=== PATIENT | female | born 1985 | race Caucasian/White ===

== ENCOUNTER 2019-08-28 18:41 | Emergency (ER) | payer BC, OTHER, SELFPAY ==
--- NOTE | ~2019-08-28 | CT_ITS ---
EXAMINATION: CT abdomen pelvis w con EXAM DATE: 08/28/2019 22:27 INDICATION: Low abdominal pain, postoperative for section. TECHNIQUE: Spiral CT of the abdomen and pelvis was performed following intravenous injection of 100 m L Omnipaque 350. Axial, coronal and sagittal images were reviewed. The dose-length product (DLP) fo r this examination was 1664.59 mGy-cm. The exposure was tailored according to patient size (auto mA exposure control), and iterative reconstruction (ASIR) was used as additional dose reduction techniqu e. There is no prior study for comparison. FINDINGS: Small amount of subcutaneous fat stranding presumably along the section site. No a bscess. The liver, spleen, adrenal glands and pancreas are unremarkable. Gallbladder not identified , patient likely has had cholecystectomy. Portal and splenic veins are patent. Kidneys enhance symm etrically. There is no hydronephrosis. The uterus and ovaries are unremarkable, no adnexal mass. The bladder is unremarkable. There is no retroperitoneal or pelvic lymphadenopathy. The appendix is normal. There are surgical changes consistent with gastric sleeve procedure. There i s mild scattered colonic diverticulosis. There is no adjacent inflammatory change to suggest diverti culitis. No free intraperitoneal gas. The heart is normal in size. There are no pericardial or pl eural effusions. The lung bases are unremarkable. There are no osteoblastic or osteolytic lesions i dentified. IMPRESSION: 1. Small amount of subcutaneous fat stranding presumably along the section site. No abscess . Reviewed, dictated and finalized at location A. 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 Small amount of subcutaneous fat stranding presumably along the se ction site. No abscess.
[2019-08-28 18:46] VITALS: BP 155/90; PULSE 90; RESP 15; TEMP 36.4; O2SAT 100
[2019-08-28 19:19] VITALS: BP 149/96; PULSE 91; RESP 12; O2SAT 96
--- NOTE | 2019-08-28 19:27 | ED.PREGNANCY ---
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 Pt reports she started experiencing sharp lt sided ABD pain radiating down labia 4 days ago. Pt states she is currently 6 days post-op from a , and notes her pain is directly blow the incision. Pt states the surgery was performed by Dr. Morgan Castillo at [facility], but notes this physician does not do follow up checks on C-Sections. Pt states the pain is alleviated when applying pressure and aggravated by standing up straight. Pt states she took a narcotic prescribed during the and Ibuprofen to no relief on the pain. Pt denies difficulty urinating. Onset (ago): day(s) (4) Location: abdomen (Lt sided) Radiation: other (Down labia) Associated symptoms: denies other symptoms Related Data Home Medications Medication Instructions Recorded Confirmed venlafaxine [Effexor XR] 75 mg PO DAILY 08/28/19 Allergies Allergy/AdvReac Type Severity Reaction Status Date / Time bandaids Allergy Rash Uncoded 08/28/19 18:50 Review of Systems Review of Systems: All systems reviewed & are unremarkable except as noted in HPI and below Gastrointestinal: Gastrointestinal: Reports abdominal pain (Lt sided radiating down labia) Genitourinary: Genitourinary: Denies urinary frequency PMFSH Past Medical History Medical History No significant past medical history Surgical History Surgical History History of Social History Social History Smoking status: Unknown if ever smoked Gender identity (if verbalized by the patient): Female Exam Const: General: healthy appearing, no acute distress and well developed Nutritional Appearance: obese morbidly obese Orientation/consciousness: patient oriented x3 (alert) and Other orientation findings (Alert) Limitations: no limitations HENMT: Head: normocephalic and atraumatic Ears: external ears normal General nose exam: No nasal discharge present and no epistaxis Face and sinus: face symmetric Mouth: Yes lip normal Eyes: Conjunctivae: conjunctivae normal Sclera: sclerae normal EOM: EOMs intact bilaterally Neck: Neck: full ROM and supple Thyroid: thyroid normal Resp: Effort & Inspection: normal respiratory effort Auscultation: clear to auscultation bilaterally, no rales, no rhonchi, no wheezes and other (breath sounds equal) Cardio: Rate: regular rate Rhythm: regular rhythm Heart sounds: no gallops and no murmurs GI: Inspection: non-distended, incision (Well-healing wound - no obvious erythema or fluid collections) and no visible herniation GI Palp: No abdominal tenderness and Yes Soft to palpation Auscultation: other (bowel sounds present) Back/Spine/Pelvis: Thoracic/Lumbar Spine: thoracic and lumbar spine normal to inspection Skin: General skin exam: normal color and no rashes or lesions noted Neuro: General: patient oriented x3 (alert), moves all extremities and no focal motor deficits Cranial nerves: Yes facial symmetry Speech: normal speech Motor exam (neuro): Motor abnormalities not present Extrem: General: normal to inspection, full ROM and no pedal edema Psych: Affect: normal affect Course Course Emergency Course: unremarkable ed evaluation did d/w dr sweeney who felt that beyond six weeks she was likely out of the range to worry re obstetrical complications Vital Signs Vital signs: Vital Signs Temperature 36.4 C L 08/28/19 18:46 Pulse Rate 90 08/28/19 18:46 Respiratory Rate 15 08/28/19 18:46 Blood Pressure 155/90 H 08/28/19 18:46 Pulse Oximetry 10
[2019-08-28 19:43] LABS: Add Urine Microscopic? NO; Appearance Urine Clear (Clear); Bilirubin Urine Negative (Negative); Blood Urine Negative (Negative); Color Urine Yellow (Yellow); Glucose Urine UA Negative (Negative); Ketones Urine Negative (Negative); Leukocyte Esterase Ur Negative LEU/UL (Negative); Nitrate Urine Negative (Negative); Protein Urine Negative (Negative); Specific Grav Ur 1.017 (1.001-1.035); Urobilinogen Urine Negative mg/dL (<2.0)
[2019-08-28 19:47] LABS: Basophils Absolute Auto 0.1 K/mm3 (0.0-0.1); Basophils Percent Auto 0.6 % (0.2-1.2); Eosinophils Absolute Auto 0.4 K/mm3 (0-0.3); Eosinophils Percent Auto 4.2 % (0-4.4); Hematocrit 35.4 % (37.0-47.0); Hemoglobin 10.7 g/dL (12.0-15.0); Immature Granulocyte Absolute 0.03 K/mm3 (0.00-0.031); Immature Granulocyte Percent A 0.3 % (0-0.5); Lymphocytes Absolute Auto 2.95 K/mm3 (0.9-3.2); Lymphocytes Percent Auto 33.2 % (18.3-44.2); Mean Corpuscular HGB Conc 30.2 g/dl (32-36); Mean Corpuscular Hemoglobin 24.4 pg (26-34); Mean Corpuscular Volume 80.8 fl (80-100); Mean Platelet Volume 9.1 fl (7.4-10.4); Monocytes Absolute Auto 0.6 K/mm3 (0.1-0.6); Monocytes Percent Auto 6.2 % (2.6-8.5); Neutrophils Absolute Auto 4.9 K/mm3 (1.3-6.7); Neutrophils Percent Auto 55.5 % (45.5-73.1); Platelet Count Result 454 k/mm3 (150-375); Red Blood Count 4.38 M/mm3 (4.2-5.4); Red Cell Distribution Width 17.7 % (11.5-14.5); White Blood Count 8.9 K/mm3 (4.5-10.0)
[2019-08-28 20:08] LABS: Blood Urea Nitrogen 11 mg/dL (7-17); Calcium 8.8 mg/dL (8.4-10.2); Carbon Dioxide 27 mmol/L (22-30); Chloride 101 mmol/L (98-107); Estimated CRCL calculation 107 ml/min; Estimated Glomerular Filt Rate > 60; Glucose 103 mg/dL (65-105); Potassium 4.3 mmol/L (3.4-5.0); Sodium 139 mmol/L (137-145)
[2019-08-28 20:16] LABS: Beta HCG Quantitative < 2.39 mIU/ML
[2019-08-28 20:30] VITALS: BP 133/96; PULSE 73; RESP 17; O2SAT 98
[2019-08-28 21:40] VITALS: BP 134/86; PULSE 63; RESP 12; O2SAT 99
[2019-08-28 23:30] VITALS: BP 132/87; PULSE 64; RESP 18; TEMP 36.7; O2SAT 98
== END 2019-08-28 23:20 | disposition home or self-care (01) ==
PROVIDERS: Emergency Provider Emergency Medicine; PCP Emergency Medicine
DX: R10.2 Pelvic and perineal pain (principal)
CPT/HCPCS: 36415; 74177; 80048; 81003; 84702; 85025; 87070; 87491; 87591; 87808; 99284; Q9967

== ENCOUNTER 2020-02-01 12:48 | Outpatient (CLI) | payer OTHER, SELFPAY ==
--- NOTE | ~2020-02-01 | US_ITS ---
EXAMINATION: US OB <=14 wk fetus w TV DATE: 02/01/2020 13:37 INDICATION: First trimester dating TECHNIQUE: Real-time pelvic transabdominal and transvaginal ultrasound was performed. COMPARISON: None. FINDINGS: The uterus measures 13.6 x 5.2 x 9.4 cm. There is an intrauterine gestational sac. A yolk sac is identified. heart motion is identified measuring 163 beats per minute (bpm) by M-mode Do ppler. The crown rump length measures 4.9 cm , which correlates with an estimated gestational a ge of 11 weeks and 1 day(s) (+/-) 5 day(s). The right ovary is not visualized however no right adnexal abnormality is seen. The left ovary measur es 4.1 x 2.4 x 2.5 cm and contains a cyst or corpus luteum. There is normal vascular flow in the left ovary. There is no free fluid in the pelvis. IMPRESSION: 1. Live intrauterine with an estimated gestational age of 11 weeks and 1 day(s) (+/-) 5 day (s) and an estimated delivery date of 08/21/2020. Reviewed, dictated and finalized at location A. IMPRESSION: 1. Live intrauterine with an estimated gestational age of 11 weeks an d 1 day(s) (+/-) 5 day(s) and an estimated delivery date of 08/21/2020.
== END 2020-02-01 12:49 | disposition home or self-care (01) ==
PROVIDERS: Visit Provider Obstetrics & Gynecology
DX: N91.2 Amenorrhea, unspecified (principal); Z3A.11 11 weeks gestation of pregnancy
CPT/HCPCS: 76801; 76817

== ENCOUNTER 2020-04-15 10:08 | Outpatient (CLI) | payer OTHER, SELFPAY ==
[2020-04-15 12:11] LABS: Glucose 1 Hour PP 50gm Dose 132 mg/dL
== END 2020-04-15 10:09 | disposition home or self-care (01) ==
LOC: ANHLAB 10:11
PROVIDERS: Visit Provider Obstetrics & Gynecology
DX: Z34.90 Encounter for supervision of normal pregnancy, unspecified, unspecified trimester (principal)
CPT/HCPCS: 36415; 82947

== ENCOUNTER 2020-05-06 10:42 | Observation (INO) | payer OTHER, SELFPAY ==
[2020-05-06] VITALS (15 sets, daily range): BP systolic 113–145; BP diastolic 60–95; PULSE 61–85; O2SAT 94–98; BMI 49.5
--- NOTE | 2020-05-06 11:03 | OBADM ---
This patient, Sonia Carroll, admitted to the OB room OB Post 115 for observation. Patient/family oriented to hospital policies and general routines including ID bracelet, bed and alarms, visiting hours, pain management, procedures, bathroom and other care routines, personal items, smoking policy, room service/diet, and visiting hours. Patient/Family are encouraged to report perceived risks to care and to ask questions if they do not understand what they are told or what they should do.
[2020-05-06] MEDS: ACETAMINOPHEN 325 MG TABLET 650 MG PO (11:35)
--- NOTE | 2020-05-06 11:39 | PC.NURSE ---
1124- Spoke with Dr. Puente, history given. ORders to send UA and give Tylenol 650 PO. will come down to see patient.
[2020-05-06 11:47] LABS: Add Urine Microscopic? NO; Appearance Urine Clear (Clear); Bilirubin Urine Negative (Negative); Blood Urine Negative (Negative); Color Urine Yellow (Yellow); Glucose Urine UA Negative (Negative); Ketones Urine Negative (Negative); Leukocyte Esterase Ur Negative LEU/UL (Negative); Nitrate Urine Negative (Negative); Protein Urine Negative (Negative); Specific Grav Ur 1.013 (1.001-1.035); Urobilinogen Urine Negative mg/dL (<2.0)
--- NOTE | 2020-05-06 13:07 | P.PNOB_ITS ---
OB - PN: Subj Subjective Date/time seen: 05/06/20 13:07 Pt presented for evaluation after noticing a sharp pain on the left side that went upwards when she was walking. No pain prior to this. No constipation. No spotting. The pain is intermittent. She denies dysuria. On L and D no contractions. UA neg. She was given 650mg Tylenol and did not change the intermittent sharp pain. Nurse checked her cervix which was closed. She had an initial elevated blood pressure but the repeats have been normal. No headache, scotomata or RUQ pain. OB - PN: Obj Data Labs Labs: Laboratory Results - last 24 hr 05/06/20 11:30 Urine Color Yellow Urine Appearance Clear Urine pH 7.0 Ur Specific [place] 1.013 Urine Protein Negative Urine Glucose (UA) Negative Urine Ketones Negative Ur Blood (Man) Negative Urine Nitrate Negative Urine Bilirubin Negative Urine Urobilinogen Negative Leukocyte Esterase Rfl Negative OB - PN A/P Assessment and Plan (1) Abdominal pain affecting : Code(s): O26.899 - Other specified related conditions, unspecified trimester; R10.9 - Unspecified abdominal pain Status: Acute Assessment and Plan: No labor or UTI. Discussed with her that the pain appears to be musculoskeletal. Recommend a support belt. May take Tylenol for pain. Call if pain gets worse, or bleeding, labor precautions. Time Spent With Patient Time: Total time spent is greater than 50% in coordination of care (as documented) at patient's floor/unit and/or counseling patient: Review of Systems Review of Systems: All systems reviewed & are unremarkable except as noted in HPI and below Constitutional: Constitutional: Reports no additional constitutional complaints and Denies headache(s) Eyes: Eyes: Denies spots in vision ENT: Reports system reviewed and no additional complaints, except as documented and Denies headache(s) Cardiovascular: Cardiovascular: Denies chest pain Gastrointestinal: Gastrointestinal: Reports no additional gastrointestinal complaints Genitourinary: Genitourinary: Reports amenorrhea Neurologic: Denies headache(s) Exam Const: General: comfortable and no acute distress Eyes: General: appearance normal, both eyes and all related structures Resp: Effort & Inspection: normal respiratory effort GI: Other: Abdomen- gravid, no RUQ pain, mild left upper tenderness, no guarding or rebound. No hepatosplenomegaly. : Other: cervix closed per nurse report Extrem: General: normal to inspection
--- NOTE | 2020-05-06 13:10 | PC.NURSE ---
1250- Dr. Puente at bedside evaluating patient. Orders to discharge to home, rest and tylenol as needed.
== END 2020-05-06 13:00 | disposition home or self-care (01) ==
PROVIDERS: Admitting Provider Obstetrics & Gynecology; PCP Emergency Medicine; Visit Provider Obstetrics & Gynecology
DX: O26.899 Other specified pregnancy related conditions, unspecified trimester (principal); R10.9 Unspecified abdominal pain; Z3A.00 Weeks of gestation of pregnancy not specified
CPT/HCPCS: 81003; A9270; G0378; G0379

== ENCOUNTER 2020-06-19 09:42 | Outpatient (CLI) | payer OTHER, SELFPAY ==
[2020-06-19 10:02] LABS: Hematocrit 29.4 % (37.0-47.0); Hemoglobin 9.3 g/dL (12.0-15.0); Mean Corpuscular HGB Conc 31.6 g/dl (32-36); Mean Corpuscular Hemoglobin 24.3 pg (26-34); Mean Corpuscular Volume 76.8 fl (80-100); Mean Platelet Volume 9.5 fl (7.4-10.4); Platelet Count Result 404 k/mm3 (150-375); Red Blood Count 3.83 M/mm3 (4.2-5.4); Red Cell Distribution Width 14.3 % (11.5-14.5); White Blood Count 8.4 K/mm3 (4.5-10.0)
[2020-06-19 10:21] LABS: Glucose Fasting Gestational 90 mg/dL (>/=95)
[2020-06-19 11:17] LABS: Vitamin D 25 Hydroxy 14.8 ng/mL
[2020-06-19 12:14] LABS: Glucose 2 Hour Gest 222 mg/dL (>/= 155)
[2020-06-19 13:06] LABS: Glucose 1 Hour Gest 127 mg/dL (>/=180)
[2020-06-19 13:51] LABS: Glucose 3 Hour Gest 61 mg/dL (>/=140)
== END 2020-06-19 09:43 | disposition home or self-care (01) ==
PROVIDERS: Visit Provider Obstetrics & Gynecology
DX: Z34.90 Encounter for supervision of normal pregnancy, unspecified, unspecified trimester (principal); R73.09 Other abnormal glucose
CPT/HCPCS: 36415; 82306; 82951; 82952; 85027

== ENCOUNTER 2020-06-20 08:40 | Outpatient (CLI) | payer OTHER, SELFPAY ==
[2020-06-20 09:00] VITALS: BP 128/69; PULSE 77
== END 2020-06-20 09:30 | disposition home or self-care (01) ==
LOC: ANHOBOP 08:44
PROVIDERS: Visit Provider Obstetrics & Gynecology
DX: Z34.93 Encounter for supervision of normal pregnancy, unspecified, third trimester (principal); Z3A.31 31 weeks gestation of pregnancy
CPT/HCPCS: 59025

== ENCOUNTER 2020-07-03 08:24 | Outpatient (RCR) | payer OTHER, SELFPAY ==
--- NOTE | ~2020-07-03 | US_ITS ---
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 Evaluate amniotic fluid index. TECHNIQUE: Real-time transabdominal obstetric ultrasound. FINDINGS: 02/01/2020 There is a single living fetus in vertex presentation. The placenta is posterior/fundal without plac enta previa. Normal BONNY measures 11.9 cm (normal range for gestational age is 8.3-24.5 cm). cardiac activity and movement is noted with a heart rate of 136 beats per minute. Biophysical profile: breathin of 2 movement: 2 of 2 tone: 2 of 2 Amniotic flud pocket: 2 of 2 Total score: 8 of 8 IMPRESSION: 1. Single living intrauterine in vertex presentation. 2: Total biophysical profile score of 8/8. 3: Normal BONNY measures 11.9 cm. Reviewed, dictated and finalized at location A. EY ENGINEER
[2020-07-03 09:59] VITALS: BP 124/63; PULSE 63
[2020-07-09 15:07] VITALS: BMI 49.7
[2020-07-09 15:09] VITALS: BMI 49.7
== END 2020-08-12 07:31 | disposition home or self-care (01) ==
LOC: ANHOBOP 08:24
PROVIDERS: Visit Provider Obstetrics & Gynecology
DX: O24.419 Gestational diabetes mellitus in pregnancy, unspecified control (principal); Z3A.33 33 weeks gestation of pregnancy
CPT/HCPCS: 59025; 76815; 76819; 97802

== ENCOUNTER 2020-07-09 15:00 | Outpatient (RCR) | payer OTHER, SELFPAY | END 2020-09-09 14:43 | disposition home or self-care (01) | LOC: ANHDMC 15:00 | PROVIDERS: Visit Provider Obstetrics & Gynecology | DX: O24.319 Unspecified pre-existing diabetes mellitus in pregnancy, unspecified trimester (principal); Z3A.00 Weeks of gestation of pregnancy not specified; Z71.89 Other specified counseling | CPT/HCPCS: G0108 ==

== ENCOUNTER 2020-07-27 05:09 | Outpatient (CLI) | payer OTHER, SELFPAY ==
[2020-07-27 05:30] VITALS: BP 147/71; BP 148/71; PULSE 60
--- NOTE | 2020-07-27 05:30 | PC.NURSE ---
Pt states she woke at apprx 03oo with headache. Checked blood pressure and systolic was 170. Denies any blurred vision or abdominal pain. States she had some nausea.
[2020-07-27 07:07] LABS: Add Urine Microscopic? YES; Appearance Urine Cloudy (Clear); Bacteria Urine 2+ /hpf; Bilirubin Urine Negative (Negative); Blood Urine Negative (Negative); Color Urine Yellow (Yellow); Glucose Urine UA Negative (Negative); Ketones Urine Negative (Negative); Leukocyte Esterase Ur Negative LEU/UL (NEGATIVE); Mucus Urine Rare /lpf; Nitrate Urine Negative (Negative); Protein Urine 1+ mg/dL (Negative); Specific Grav Ur 1.016 (1.001-1.035); Squamous Epithelial Cell Urine Many /hpf (Few); Urobilinogen Urine Negative mg/dL (<2.0)
[2020-07-27 07:09] LABS: Basophils Percent Auto 0.4 % (0.2-1.2); Eosinophils Percent Auto 0.4 % (0-4.4); Hematocrit 28.5 % (37.0-47.0); Hemoglobin 8.8 g/dL (12.0-15.0); Immature Granulocyte Absolute 0.05 K/mm3 (0.00-0.031); Immature Granulocyte Percent A 0.7 % (0-0.5); Mean Corpuscular HGB Conc 30.9 g/dl (32-36); Mean Corpuscular Hemoglobin 23.4 pg (26-34); Mean Corpuscular Volume 75.8 fl (80-100); Monocytes Absolute Auto 0.4 K/mm3 (0.1-0.6); Neutrophils Absolute Auto 4.6 K/mm3 (1.3-6.7); Neutrophils Percent Auto 62.5 % (45.5-73.1); Platelet Count Result 342 k/mm3 (150-375); Red Blood Count 3.76 M/mm3 (4.2-5.4); Red Cell Distribution Width 15.2 % (11.5-14.5); White Blood Count 7.3 K/mm3 (4.5-10.0)
[2020-07-27 07:14] LABS: Creatinine Urine 109.2 mg/dL; Total Protein Urine Random 20 mg/dL; Ur Ttl Prot Creatinine Ratio 0.18 mg/mg (0-0.20)
[2020-07-27 07:15] LABS: Alanine Aminotransferase 20 U/L (4-35); Alkaline Phosphatase 128 U/L (38-126); Anion Gap 2 mmol/L (8-16); Aspartate Amino Transferase 25 U/L (14-36); Bilirubin,Total 0.2 mg/dL (0.2-1.3); Blood Urea Nitrogen 8 mg/dL (7-17); Calcium 8.7 mg/dL (8.4-10.2); Carbon Dioxide 25 mmol/L (22-30); Chloride 109 mmol/L (98-107); Estimated Glomerular Filt Rate > 60; Glucose 82 mg/dL (65-105); Potassium 3.8 mmol/L (3.4-5.0); Sodium 136 mmol/L (137-145)
--- NOTE | 2020-07-27 10:19 | PC.NURSE ---
Discussed test results, BP's, home BP cuff elevated, [place] is gone and patient request to go home with Dr. Drake. Pt to go home with preeclampsia handout and instructions to follow up with her Doctor this week.
== END 2020-07-27 10:33 | disposition home or self-care (01) ==
PROVIDERS: Obstetrics & Gynecology; Visit Provider Obstetrics & Gynecology
DX: R51.9 Headache, unspecified (principal); O13.9 Gestational [pregnancy-induced] hypertension without significant proteinuria, unspecified trimester; Z3A.00 Weeks of gestation of pregnancy not specified
CPT/HCPCS: 36415; 59025; 80053; 81001; 82570; 84156; 84550; 85025; 87086; 87088

== ENCOUNTER 2020-08-01 09:12 | Outpatient (CLI) | payer OTHER, SELFPAY ==
[2020-08-01] VITALS (9 sets, daily range): BP systolic 125–146; BP diastolic 71–83; PULSE 52–73
[2020-08-01 09:55] LABS: Basophils Percent Auto 0.4 % (0.2-1.2); Eosinophils Absolute Auto 0.1 K/mm3 (0-0.3); Eosinophils Percent Auto 0.6 % (0-4.4); Hematocrit 30.5 % (37.0-47.0); Hemoglobin 9.3 g/dL (12.0-15.0); Immature Granulocyte Absolute 0.04 K/mm3 (0.00-0.031); Immature Granulocyte Percent A 0.4 % (0-0.5); Lymphocytes Absolute Auto 2.48 K/mm3 (0.9-3.2); Lymphocytes Percent Auto 26.7 % (18.3-44.2); Mean Corpuscular HGB Conc 30.5 g/dl (32-36); Mean Corpuscular Hemoglobin 22.9 pg (26-34); Mean Corpuscular Volume 75.1 fl (80-100); Mean Platelet Volume 10.2 fl (7.4-10.4); Monocytes Absolute Auto 0.5 K/mm3 (0.1-0.6); Monocytes Percent Auto 5.6 % (2.6-8.5); Neutrophils Absolute Auto 6.1 K/mm3 (1.3-6.7); Neutrophils Percent Auto 66.3 % (45.5-73.1); Nucleated Red Blood Cells Perc 0.2 % (0.0-0.2); Platelet Count Result 392 k/mm3 (150-375); Red Blood Count 4.06 M/mm3 (4.2-5.4); Red Cell Distribution Width 15.3 % (11.5-14.5); White Blood Count 9.3 K/mm3 (4.5-10.0)
[2020-08-01 09:57] LABS: Add Urine Microscopic? NO; Appearance Urine Clear (Clear); Bilirubin Urine Negative (Negative); Blood Urine Negative (Negative); Color Urine Yellow (Yellow); Glucose Urine UA Negative (Negative); Ketones Urine Negative (Negative); Leukocyte Esterase Ur Negative LEU/UL (NEGATIVE); Nitrate Urine Negative (Negative); Protein Urine Negative (Negative); Specific Grav Ur 1.012 (1.001-1.035); Urobilinogen Urine Negative mg/dL (<2.0)
[2020-08-01 10:08] LABS: Alanine Aminotransferase 17 U/L (4-35); Albumin Level 3.3 g/dL (3.5-5.1); Alkaline Phosphatase 145 U/L (38-126); Anion Gap 7 mmol/L (8-16); Aspartate Amino Transferase 20 U/L (14-36); Bilirubin,Total 0.3 mg/dL (0.2-1.3); Blood Urea Nitrogen 6 mg/dL (7-17); Calcium 8.4 mg/dL (8.4-10.2); Carbon Dioxide 22 mmol/L (22-30); Chloride 109 mmol/L (98-107); Estimated Glomerular Filt Rate > 60; Glucose 84 mg/dL (65-105); Potassium 3.9 mmol/L (3.4-5.0); Sodium 138 mmol/L (137-145); Uric Acid 6.6 mg/dL (2.5-7.5)
[2020-08-01 10:09] LABS: Creatinine Urine 79.5 mg/dL; Total Protein Urine Random 14 mg/dL; Ur Ttl Prot Creatinine Ratio 0.18 mg/mg (0-0.20)
--- NOTE | 2020-08-01 11:34 | PM.OBTRLD ---
OB - Triage/Final Diagnosis Visit Information Date of evaluation: 08/01/20 Reason for evaluation: other Comments/Additional reasons for admission: I have assessed the risk for this patient, Sonia Carroll, and determined that she would benefit from observation care. was sent from [facility] office for elevated BP 150/90 mm hg where she was getting her test .Pt presented to [facility] c/o [place] on and off and vomited once today and was bile .Denies CP/SOB/RUQ pain/Vision problems. C/O Iam Hale ctxns/Denies Vb/LOF. feels FM. Evaluation Baseline heart rate: 150 Variability: Moderate (11-25) monitor accelerations: Present monitor decelerations: None Laboratory results: Laboratory Tests 08/01/20 08/01/20 08/01/20 09:39 09:39 09:39 WBC 9.3 RBC 4.06 L Hgb 9.3 L Hct 30.5 L MCV 75.1 L MCH 22.9 L MCHC 30.5 L RDW 15.3 H Plt Count 392 H MPV 10.2 Immature Gran % (Auto) 0.4 Neut % (Auto) 66.3 Lymph % (Auto) 26.7 Stevens % (Auto) 5.6 Eos % (Auto) 0.6 Baso % (Auto) 0.4 Lymph # (Auto) 2.48 Stevens # (Auto) 0.5 Eos # (Auto) 0.1 Baso # (Auto) 0.0 Abs Immat Gran (auto) 0.04 H Absolute Neuts (auto) 6.1 Absolute Nucleated RBC 0.0 Nucleated RBC % 0.2 Sodium Potassium Chloride Carbon Dioxide Anion Gap BUN Creatinine Estim Creat Clear Calc Estimated GFR Glucose Uric Acid Calcium Total Bilirubin AST ALT Alkaline Phosphatase Total Protein Albumin Urine Color Yellow Urine Appearance Clear Urine pH 6.0 Ur Specific [place] 1.012 Urine Protein Negative Urine Glucose (UA) Negative Urine Ketones Negative Ur Blood (Man) Negative Urine Nitrate Negative Urine Bilirubin Negative Urine Urobilinogen Negative Ur Leukocyte Esterase Negative U Random Total Protein 14 Urine Creatinine 79.5 Protein/Creat Ratio 2 0.18 08/01/20 09:39 WBC RBC Hgb Hct MCV MCH MCHC RDW Plt Count MPV Immature Gran % (Auto) Neut % (Auto) Lymph % (Auto) Stevens % (Auto) Eos % (Auto) Baso % (Auto) Lymph # (Auto) Stevens # (Auto) Eos # (Auto) Baso # (Auto) Abs Immat Gran (auto) Absolute Neuts (auto) Absolute Nucleated RBC Nucleated RBC % Sodium 138 Potassium 3.9 Chloride 109 H Carbon Dioxide 22 Anion Gap 7 L BUN 6 L Creatinine 0.60 L Estim Creat Clear Calc Not Reportable Estimated GFR > 60 Glucose 84 Uric Acid 6.6 Calcium 8.4 Total Bilirubin 0.3 AST 20 ALT 17 Alkaline Phosphatase 145 H Total Protein 7.0 Albumin 3.3 L Urine Color Urine Appearance Urine pH Ur Specific [place] Urine Protein Urine Glucose (UA) Urine Ketones Ur Blood (Man) Urine Nitrate Urine Bilirubin Urine Urobilinogen Ur Leukocyte Esterase U Random Total Protein Urine Creatinine Protein/Creat Ratio 2 Vital signs: Vital Signs - 24 hr 08/01/20 09:43 08/01/20 09:46 08/01/20 10:01 Pulse Rate 67 57 L 58 L Blood Pressure 128/71 136/74 125/83 08/01/20 10:16 08/01/20 10:31 08/01/20 10:46 Pulse Rate 53 L 54 L 56 L Blood Pressure 136/74 146/77 H 140/76 08/01/20 11:01 08/01/20 11:16 Pulse Rate 52 L 55 L Blood Pressure 142/72 H 141/79 H Comments: status reassuring. BP in acceptable range Instruction provided for 24 hr urine collection Pre Eclamptic precautions reviewed Labor precautions reviewed Pt has appointment at 12.30 pm for her IV iron infusion. Pt having growth scan with [facility] on 08/05/2020. Final Diagnosis (1) Encounter for other suspected maternal and conditions ruled out: Code(s): Z03.79 - Encounter for other suspected maternal and conditions ruled out Status: Acute
== END 2020-08-01 11:29 | disposition home or self-care (01) ==
LOC: ANHOBOP 09:17 → ANHOBPP 09:18
PROVIDERS: Visit Provider Obstetrics & Gynecology
DX: Z03.79 Encounter for other suspected maternal and fetal conditions ruled out (principal); O13.9 Gestational [pregnancy-induced] hypertension without significant proteinuria, unspecified trimester; Z3A.00 Weeks of gestation of pregnancy not specified
CPT/HCPCS: 36415; 59025; 80053; 81003; 82570; 84156; 84550; 85025; 87086; 87088; 99199

== ENCOUNTER 2020-08-02 22:55 | Observation (INO) | payer OTHER, SELFPAY ==
[2020-08-02 23:11] VITALS: BP 154/65; PULSE 58; BMI 51.3
[2020-08-02 23:17] VITALS: BP 135/64; PULSE 60
[2020-08-02 23:31] VITALS: BP 129/70; PULSE 60
[2020-08-02 23:47] VITALS: BP 126/65; PULSE 55
[2020-08-03 00:01] VITALS: BP 121/70; PULSE 61
--- NOTE | 2020-08-27 09:48 | PM.OBTRLD ---
OB - Triage/Final Diagnosis Visit Information Comments/Additional reasons for admission: I have assessed the risk for this patient, Sonia Carroll, and determined that she would benefit from observation care. Final Diagnosis (1) Elevated blood pressure, situational: Code(s): R03.0 - Elevated blood-pressure reading, without diagnosis of hypertension Status: Acute
== END 2020-08-03 00:26 | disposition home or self-care (01) ==
PROVIDERS: Admitting Provider Obstetrics & Gynecology; Visit Provider Obstetrics & Gynecology
DX: O26.893 Other specified pregnancy related conditions, third trimester (principal); R03.0 Elevated blood-pressure reading, without diagnosis of hypertension; Z3A.37 37 weeks gestation of pregnancy
CPT/HCPCS: G0378; G0379

== ENCOUNTER 2020-08-04 10:12 | Outpatient (NON) | payer OTHER, SELFPAY ==
[2020-08-04 10:17] VITALS: BMI 51.1
[2020-08-04 10:44] LABS: Collection Time Urine 24 HOURS
[2020-08-04 10:48] LABS: Creatinine Urine 49.9 mg/dL; Patient Weight 307 Lbs
[2020-08-04 11:16] LABS: Creatinine Clearance Urine 139.4 ml/min (75-125); Specific Gravity Ur 1.007; Total Volume 24 Hour Urine 3300 ml
[2020-08-04 16:04] LABS: Total Protein Urine Random 7 mg/dL
[2020-08-04 16:05] LABS: Total Protein Urine 24 Hr 231 mg/24hr (0-149)
== END 2020-08-04 10:13 ==
LOC: ANHOBOP 10:15
PROVIDERS: Visit Provider Obstetrics & Gynecology
DX: O99.891 Other specified diseases and conditions complicating pregnancy (principal); Z3A.38 38 weeks gestation of pregnancy; R51.9 Headache, unspecified; R11.10 Vomiting, unspecified
CPT/HCPCS: 81050; 82575; 84156

== ENCOUNTER 2020-08-08 10:07 | Inpatient (IN) | payer OTHER, SELFPAY ==
[2020-08-08] VITALS (68 sets, daily range): BP systolic 69–153; BP diastolic 46–112; PULSE 50–122; RESP 16–20; TEMP 36–36.7; O2SAT 96–100; BMI 50.8
--- NOTE | 2020-08-08 10:25 | WPDANESEPPF ---
Anes - Initial Pre Proc Eval Procedure: Operation Date: 08/08/20 12:00 Proposed Procedures p Repeat Section - Patricia Coy MD Date/Time: 08/08/20 10:25 Surgeon: Patricia Coy MD Pre Op Diagnosis: Section Patient Data Age: 34 Gender: F Height: Weight: Allergies Allergy/AdvReac Type Severity Reaction Status Date / Time bandaids Allergy Intermediate Rash Uncoded 08/06/20 13:14 Home Medications Medication Instructions Recorded Confirmed Type venlafaxine [Effexor XR] 150 mg PO DAILY 08/28/19 08/08/20 History prenat.vits,antonio,yvv-dcad-ixyfp 1 tablet PO DAILY 01/19/20 08/08/20 History ergocalciferol (vitamin D2) 1,250 1,250 mcg PO 2XW #8 cap 03/07/20 08/08/20 Rx mcg (50,000 unit) capsule aspirin 81 mg PO DAILY 05/06/20 08/08/20 History blood sugar diagnostic #100 ea 06/27/20 08/08/20 Rx lancets 33 gauge #100 ea 06/27/20 08/08/20 Rx ferrous sulfate 325 mg PO DAILY 07/03/20 08/08/20 History ondansetron 4 mg disintegrating 4 mg PO Q6H PRN #20 tablet 07/27/20 08/08/20 Rx tablet Patient hx anesthesia problems: none Family hx anesthesia problems: none PMFSH Past Medical History Medical History (Updated 08/08/20 @ 11:23 by Patricia Coy MD) Abnormal Pap smear of cervix Anxiety Cholecystectomy planned Depression Encounter for other suspected maternal and conditions ruled out Gestational diabetes Oligohydramnios in third trimester PIH ( induced hypertension) Surgical History Surgical History (Updated 08/08/20 @ 11:23 by Patricia Coy MD) H/O dilation and curettage History of Hx of laparoscopic gastric banding Previous delivery, antepartum condition or complication Previous section Family History Family History Father Blood clot in vein Acute myocardial infarction Hypertension Hyperlipidemia Grandparent Breast cancer Cerebrovascular accident Mother Diabetes mellitus Social History Social History Smoking packs per day: 1 Smoking cigarettes per day: 20.0 Years smoked: 15 Smoking pack-years: 15.00 Smoking status: Former smoker Tobacco type: cigarettes Smoking end date: 11/26/18 Additional smoking assessment comments: Vapes Alcohol intake: never Substance use: never Gender identity (if verbalized by the patient): Female Spiritual care concerns: No Anes - Eval Final PreProcedure Day of Procedure 08/08/20 10:25 Patient weight: obese Heart: regular rate and rhythm Lungs: clear to auscultation and normal air movement Airway: Mallampati scale class II Neurological: alert and oriented Last oral intake: >/= 8 hours ASA classification: III Emergent: no Anesthetic plan: proceed Anesthesia type and monitoring: regional spinal Informed Consent: The patient's anesthetic plan and its attendant risks and benefits were discussed with the patient/family/POA. Questions were solicited and answers provided to the satisfaction of the patient/family/POA.
[2020-08-08] MEDS: LACTATED RINGERS 1,000 ML 125 ML IV CONT (10:57)
[2020-08-08 10:58] LABS: Basophils Percent Auto 0.3 % (0.2-1.2); Eosinophils Absolute Auto 0.1 K/mm3 (0-0.3); Hematocrit 33.1 % (37.0-47.0); Hemoglobin 10.1 g/dL (12.0-15.0); Immature Granulocyte Absolute 0.13 K/mm3 (0.00-0.031); Immature Granulocyte Percent A 1.4 % (0-0.5); Lymphocytes Absolute Auto 2.29 K/mm3 (0.9-3.2); Lymphocytes Percent Auto 25.3 % (18.3-44.2); Mean Corpuscular HGB Conc 30.5 g/dl (32-36); Mean Corpuscular Hemoglobin 23.4 pg (26-34); Mean Corpuscular Volume 76.8 fl (80-100); Mean Platelet Volume 10.2 fl (7.4-10.4); Monocytes Absolute Auto 0.5 K/mm3 (0.1-0.6); Monocytes Percent Auto 5.1 % (2.6-8.5); Neutrophils Percent Auto 66.9 % (45.5-73.1); Nucleated Red Blood Cells Perc 0.3 % (0.0-0.2); Platelet Count Result 395 k/mm3 (150-375); Red Blood Count 4.31 M/mm3 (4.2-5.4); Red Cell Distribution Width 18.4 % (11.5-14.5)
--- NOTE | 2020-08-08 11:03 | LDADM ---
This patient, Sonia Carroll, was admitted to Labor/Delivery/Recovery 120 on 08/08/20 at 10:07. Plans for surgery/ and pain management were discussed with patient. Patient/family oriented to hospital policies and general routines including ID bracelet, bed and alarms, visiting hours, pain management, procedures, bathroom and other care routines, personal items, smoking policy, room service/diet and guest tray routines, infant security routines, and visiting hours. Patient/Family are encouraged to report perceived risks to care and to ask questions if they do not understand what they are told or what they should do. See OBIX for further documentation.
--- NOTE | 2020-08-08 11:17 | PM.IMHP ---
H&P: HPI History of Present Illness Date/Time: 08/08/20 11:17 Chief Complaint: oligohydramnios in third trimester Narrative: Sonia Carroll is a 34 year old female was sent by [facility] office for delivery due to oligohydramnios, BONNY around 2 cm..Pt is 38 weeks 1 day by her JONAH of 08/21/2020.Pt was scheduled for RLTCS on 08/15/2020. complicated by Obesity, GDM diet controlled and h/o previous CD at 35 weeks for preeclampsia.c/o Iam canela CTXNS.c/o more vaginal discharge not sure if leaking and so ROM plus test performed and was negative. Denies Vb. feels FM. Discussed procedure in detail as well as risk of procedure i.e infection/bleeding may require BT which pt agrees/injury to bowel/bladder and adjacent structure/anesthesia risk/can be life threatening. Pt voiced verbalzied. All question answered. post op course also discussed in detail. Review of Systems Review of Systems: All systems reviewed & are unremarkable except as noted in HPI and below Constitutional: Constitutional: Reports no additional constitutional complaints, Denies chills, Denies fever(s) and Denies headache(s) Eyes: Eyes: Reports as per HPI and Reports no additional eye complaints ENT: Reports system reviewed and no additional complaints, except as documented, Reports as per HPI, Reports Normal hearing present and Denies headache(s) Cardiovascular: Cardiovascular: Reports as per HPI, Reports no additional cardiovascular complaints, Denies chest pain and Denies dyspnea Respiratory: Respiratory: Reports as per HPI, Reports no additional respiratory complaints, Denies cough and Denies dyspnea Gastrointestinal: Gastrointestinal: Reports as per HPI, Reports no additional gastrointestinal complaints, Denies abdominal pain, Denies hematochezia, Denies change in bowel habits, Denies change in stool character, Denies constipation, Denies GI cramping, Denies heartburn, Denies diarrhea, Denies nausea, Denies vomiting, Denies hematemesis and Reports other (Gravid) Genitourinary: Genitourinary: Reports no additional female genitourinary complaints, Reports as per HPI, Denies abnormal vaginal bleeding, Denies metrorrhagia, Denies hematuria, Denies change in libido, Denies urinary frequency, Denies post void dribbling, Denies genital pruritis, Denies genital lesions, Denies menorrhagia, Denies dyspareunia, Denies dysmenorrhea, Denies dysuria, Denies pelvic pain, Denies sexual dysfunction, Denies urinary incontinence, Denies urinary hesitancy, Denies urinary urgency, Denies vaginal discharge, Denies vaginal dryness, Denies vaginal odor and Denies vaginal pruritus Musculoskeletal: Musculoskeletal: Reports no additional musculoskeletal complaints and Reports as per HPI Integumentary/Breasts: Skin/Breast: Reports system reviewed and no additional complaints, except as docu, Reports as per HPI, Denies breast skin changes, Denies breast pain, Denies breast mass and Denies nipple discharge Neurologic: Reports system reviewed and no additional complaints, except as documented, Reports as per HPI, Reports Normal hearing present and Denies headache(s) Psychiatric: Psychiatric: Reports no additional psychiatric complaints, Reports as per HPI, Denies anxiety, Denies change in libido and Denies depression Endocrine: Endocrine: Reports no additional endocrine complaints, Reports as per HPI and Denies change in libido Hematologic/Lymphatic: Hematologic/Lymphatic: Reports no additional hematologic/lymphatic complaints, Reports as per HPI, Denies easy bleeding and Denies easy bruising Allergic/Immunologic: Allergic/Immunologic: Reports no additional allergic/immunologic complaints and Reports as per HPI [facility] Past Medical History Medical History (Updated 08/08/20 @ 11:23 by Patricia Coy MD) Abnormal Pap smear of cervix Anxiety Cholecystectomy planned Depression Encounter for other suspected maternal and conditions ruled out Gestational diabetes Oligohydramnios in third trimest
--- NOTE | 2020-08-08 11:25 | WPDHPUPDATE1 ---
History and Physical Update Update Date/Time: 08/08/20 11:25 History and Physical has been reviewed, including an updated exam of the patient. There are NO changes in the patient's condition. Risks, benefits, and alternatives have been discussed and questions answered. Patient agrees to proceed with procedure.
[2020-08-08] MEDS: LACTATED RINGERS 1,000 ML 999 ML IV CONT ×2 (11:46→17:55)
[2020-08-08 11:51] LABS: HIV 1/2 Ab P24 Ag Result Negative (Negative)
[2020-08-08] MEDS: ceFAZolin 3 GM/D5W 100 ML 100 ML IVPB (12:01)
[2020-08-08] MEDS: KETOROLAC 30 MG/ML VIAL (*BKC) IV PUSH ×2 (13:18→16:55)
--- NOTE | 2020-08-08 13:37 | SUR.OPER ---
Dr. Coy used Sepra Film on top of uterine incision
--- NOTE | 2020-08-08 13:40 | PM.OP ---
Procedure Note - Brief Procedure Note - Brief Date of procedure: 08/08/20 Pre-op diagnosis: Section IUP at 38 weeks 1 day, oligohydramnios,GDM diet controlled , morbid obesity previous CD and desires RLTCS Post-op diagnosis: same Procedure performed: RLTCS Description of procedure: After informing Risk of surgery that infection/bleeding may require BT/injury to bowel/bladder and adjacent structure/anesthesia risk and can be life threatening,pt voiced verbalized. All question answered.Informed consent obtained. Pt taken to OR and spinal anesthesia instituted. Pt placed in supine position with left chacon tilt.Mckeon catheter introduced under sterile technique. pt prepped and draped in normal sterile fashion. Time out performed. Anesthesia checked and adequate.Pt received antibiotics as per protocol.Incision made on previous scar with scalpel and carried thru fascia. Fascia incised in midline and extended bluntly laterally.Superior aspect of fascia grasped with Donna clamp, elevated and underlying muscle dissected of bluntly. Similarly inferior aspect of fascia was clamped with Donna clamp ,elevated and underlying rectus muscle dissected bluntly.Rectus muscle in midline and peritoneal cavity entered bluntly and peritoneal incision extended superiorly and inferiorly bluntly.At this point large tortuous uterine vessels noted on right side of uterus anteriorly.vesicouterine peritoneum identified.bladder blade inserted.Transverse incision made on lower uterine with attention not to injure or go thru the blood vessels.uterine incision extended laterally with bandage scissor with attention not to injure blood vessels.Clear amniotic fluid noted. Infant head delivered atraumatically with help of vacuum under all safety measures. After delivering of head, vacuum was released and anterior shoulder delivered , followed by posterior shoulder and rest of TORSO. infant nose and mouth suctioned. vigorously crying. Cord clamped and cut and handed to waiting nurse. cord blood and gases collected.Placenta delivered manually and uterus exteriorized and clear of all clots. uterus firm. At this point , the tortuous vessel not observed. Uterus incision approximated with O-Vicryl.Second imbricated layer performed with O Vicryl. Excellent hemostasis noted.Posterior cul de sac cleared of all clots. Uterus entered in to abdomen. lateral gutters cleared of all clots. One more time excellent hemostasis noted at uterine incision site.Sepra film applied. all instrument remove. Peritoneum approximated with 3-O Vicryl.Fascia approximated with PDS.Subcutaneous layer closed in 3 layer with 3-O Vicryl.Skin approximated with Monocryl and Dermabond. STEFF dressing applied.Pt tolerated procedure well. Sponge/laps/needle counts correct x 2. Pt taken to recovery room, stable condition and infant to new born nursery. Anesthesia: spinal Surgeon: Patricia Coy MD Estimated blood loss (mL): 950 IV fluids (mL): 2,100 Urine output (mL): 200 Drains: Yes (mckeon) Packing: No Pathology: yes (cord blood, gases, placenta) Complications: No immediate complications Condition: stable Disposition: floor Findings: a viable term female infant with 9/9 and 7 lb 13 oz wt delivered via vertex presentation with vaccum assisted .Normal uterus,fallopian tubes/ovaries
--- NOTE | 2020-08-08 13:51 | SUR.OPER ---
Pt has 900 ml remaining of 1000ml LR with 20 units Pitocin.
--- NOTE | 2020-08-08 16:01 | SUR.OPER ---
Dr. Coy informed of only 50 ml urine output in the last 2 hrs and QBL in recovery was 285 ml. Order received for fluid bolus.
[2020-08-08] MEDS: OXYTOCIN 30 UNITS/NS 500 ML 30 UNITS/500 ML BAG 125 UNITS IV CONT (16:02)
[2020-08-08] MEDS: SIMETHICONE 80 MG TAB.CHEW PO (16:56)
--- NOTE | 2020-08-08 19:02 | PC.NURSE ---
PT arrived on unit via stretcher accompanied by spouse and and taken to room 285. PT transferred to bed via maxi air without difficulty.PT oriented to room 285 and surrounding area. PT introductions made and plan of care discussed per post op c section, pain management, breast feeding, daily care activities. PT verbalized understanding of such care.Welcome packet reviewed and discussed.
[2020-08-08] MEDS: VENLAFAXINE HCL XR 75 MG CAP.ER.24H 150 MG PO (21:00)
[2020-08-08] MEDS: KCL 20 MEQ/D5/0.45% SOD CHL 1,000 ML 125 ML IV CONT (21:00)
[2020-08-09] MEDS: HYDROcodone/acetaminophen (*CRX) 5-325 MG TABLET 1 TAB PO ×4 (00:28→20:30)
[2020-08-09] MEDS: DEXTROSE 5%/0.45% SOD CHL 1,000 ML 125 ML IV CONT (03:00)
[2020-08-09 04:25] VITALS: BP 115/69; PULSE 65; RESP 16; TEMP 36.3; O2SAT 96
[2020-08-09 05:21] LABS: Basophils Percent Auto 0.2 % (0.2-1.2); Eosinophils Absolute Auto 0.1 K/mm3 (0-0.3); Eosinophils Percent Auto 1.3 % (0-4.4); Hemoglobin 7.6 g/dL (12.0-15.0); Immature Granulocyte Absolute 0.05 K/mm3 (0.00-0.031); Immature Granulocyte Percent A 0.6 % (0-0.5); Lymphocytes Absolute Auto 2.51 K/mm3 (0.9-3.2); Lymphocytes Percent Auto 29.2 % (18.3-44.2); Mean Corpuscular HGB Conc 30.4 g/dl (32-36); Mean Corpuscular Hemoglobin 23.5 pg (26-34); Mean Corpuscular Volume 77.2 fl (80-100); Mean Platelet Volume 10.2 fl (7.4-10.4); Monocytes Absolute Auto 0.5 K/mm3 (0.1-0.6); Monocytes Percent Auto 5.7 % (2.6-8.5); Neutrophils Absolute Auto 5.4 K/mm3 (1.3-6.7); Platelet Count Result 326 k/mm3 (150-375); Red Blood Count 3.24 M/mm3 (4.2-5.4); Red Cell Distribution Width 17.9 % (11.5-14.5); White Blood Count 8.6 K/mm3 (4.5-10.0)
[2020-08-09 07:10] LABS: Rapid Plasma Reagin Non-Reactive (NonReactive)
[2020-08-09 08:00] VITALS: BP 126/81; PULSE 67; RESP 18; TEMP 36.2; O2SAT 97
[2020-08-09] MEDS: MULTIVIT/MIN/PREN/FOL AC/IRON TABLET 1 TAB PO (09:18)
[2020-08-09] MEDS: POLYSACCHARIDE IRON COMPLEX 150 MG CAPSULE PO ×2 (09:18→16:42)
[2020-08-09] MEDS: DOCUSATE SODIUM 100 MG CAPSULE PO ×2 (09:18→16:42)
[2020-08-09] MEDS: IRON SUCROSE COMPLEX 200 MG in SODIUM CHLORIDE 0.9% IV 50 ML 240 MG IVPB (10:18)
[2020-08-09] MEDS: SODIUM CHLORIDE 0.9% IV 100 ML 125 ML (10:18)
--- NOTE | 2020-08-09 10:29 | WPDANLDPN2 ---
Anes-Prog Note L&D Date/Time: 08/09/20 10:29 Comfortable throughout: section Neuraxial method: spinal Epidural/Spinal procedure site: clean & non-tender Neuro status: Neuro function grossly intact. Cardiovascular status: normal Respiratory status: normal Airway patency: baseline Mental status: baseline Post-Op hydration status: normal Vital Signs: Last Vital Signs Temp 36.2 C L 08/09/20 08:00 Pulse 67 08/09/20 08:00 Resp 18 08/09/20 08:00 BP 126/81 08/09/20 08:00 Pulse Ox 97 08/09/20 08:00 Pain score (VAS): 2 I/O: Intake & Output 08/08/20 08/09/20 08/09/20 23:59 07:59 15:59 Intake Total 1400 700 Output Total 410 1600 Balance -410 -200 700 Post-procedural complaints: none Patient feedback: Patient satisfied with anesthetic care.
--- NOTE | 2020-08-09 10:29 | WPDANLDNPN2 ---
Anes-Prog Note L&D-Neuraxial Date/Time: 08/09/20 10:29 Neuraxial medications: intrathecal PF morphine Opiod-related complaints: none Patient feedback: Patient satisfied with post-operative pain management.
--- NOTE | 2020-08-09 10:49 | PC.NURSE ---
Consulted with patient, reviewed feeding cues, frequencies, duration of feedings, feeding elimination flow sheet, and signs of adequate intake. Demonstrated stimulation techniques to wake for feeding. Assisted with to breast. Reviewed positioning/alignment, holding breast and asymmetrical latch on. was able to latch correctly. Infant nursed eagerly, with steady draws and frequent swallowing noted. Reviewed signs of a correct latch, effective nursing and suck swallow ratio. was able to maintain latch without discomfort to mother. Nipple care reviewed. Instructed mother to call out for RN assistance if she is unable to latch for feeding or she has discomfort with nursing. Instructed feeding should be initiated three hours from start of last feeding or if feeding cues are noted before. Mother voiced understanding of information shared.
--- NOTE | 2020-08-09 11:24 | PM.OBPNVD ---
OB - PN: Subj Subjective Date/time seen: 08/09/20 11:24 Patient comments: pain well controlled and tolerating diet [place] baby status: doing well and nursing well [place] feeding status: exclusively breast feeding Narrative: pain well controlled' Ambulating and urinating without difficulty lochia less than menstrual cycle Baby girl doing well and BF OB - PN: Obj Data Labs CBC & Chem 7: 08/09/20 04:06 Labs: Laboratory Results - last 24 hr 08/08/20 08/08/20 08/08/20 10:46 10:46 10:46 WBC RBC Hgb Hct MCV MCH MCHC RDW Plt Count MPV Immature Gran % (Auto) Neut % (Auto) Lymph % (Auto) Lake % (Auto) Eos % (Auto) Baso % (Auto) Lymph # (Auto) [place] # (Auto) Eos # (Auto) Baso # (Auto) Abs Immat Gran (auto) Absolute Neuts (auto) Absolute Nucleated RBC Nucleated RBC % RPR Non-reactive HIV 1&2 Ab/P24 Ag 4thGn Negative Blood Type A Positive Antibody Screen Negative 08/09/20 04:06 WBC 8.6 RBC 3.24 L Hgb 7.6 L Hct 25.0 L MCV 77.2 L MCH 23.5 L MCHC 30.4 L RDW 17.9 H Plt Count 326 MPV 10.2 Immature Gran % (Auto) 0.6 H Neut % (Auto) 63.0 Lymph % (Auto) 29.2 Lake % (Auto) 5.7 Eos % (Auto) 1.3 Baso % (Auto) 0.2 Lymph # (Auto) 2.51 Lake # (Auto) 0.5 Eos # (Auto) 0.1 Baso # (Auto) 0.0 Abs Immat Gran (auto) 0.05 H Absolute Neuts (auto) 5.4 Absolute Nucleated RBC 0.0 Nucleated RBC % 0.0 RPR HIV 1&2 Ab/P24 Ag 4thGn Blood Type Antibody Screen OB - PN A/P Assessment and Plan (1) Previous delivery, delivered: Code(s): O34.219 - Maternal care for unspecified type scar from previous delivery Status: Acute Assessment and Plan: [place] Incision C/D/and garett dressing intact (2) Anemia: Code(s): D64.9 - Anemia, unspecified Status: Acute Assessment and Plan: IV iron daily till discharge and will send with po iron. (3) Depression: Code(s): F32.9 - Major depressive disorder, single episode, unspecified Status: Acute Assessment and Plan: mood stable continue Effexor. Plan day: 1 Plan: routine care Comments: encourage ambulation BF instructed Time Spent With Patient Time: Total time spent is greater than 50% in coordination of care (as documented) at patient's floor/unit and/or counseling patient: Review of Systems Constitutional: Constitutional: Reports as per HPI, Denies chills and Denies fever(s) Eyes: Eyes: Reports as per HPI and Denies blurry vision ENT: Reports Normal hearing present Cardiovascular: Cardiovascular: Denies chest pain and Denies dyspnea Respiratory: Respiratory: Reports as per HPI, Denies cough and Denies dyspnea Gastrointestinal: Gastrointestinal: Reports as per HPI Genitourinary: Genitourinary: Reports as per HPI Exam Const: General: cooperative, healthy appearing, comfortable, no acute distress, well developed, alert, awake and Physically active Nutritional Appearance: obese Orientation/consciousness: patient oriented x3 Limitations: no limitations HENMT: Head: normal to inspection Ears: hearing grossly normal bilaterally Resp: Effort & Inspection: able to speak in complete sentences Auscultation: clear to auscultation bilaterally Cardio: Rate: regular rate Rhythm: regular rhythm GI: Inspection: normal to inspection and incision (C/D/I and garett dressing intact) GI Palp: Yes Soft to palpation, Yes Tenderness to palpation present (GI) (appropriate for surgery) and Yes Other GI palpation findings present (Fundus firm below umbilicus) Auscultation: normal bowel sounds Rectal Exam: deferred
--- NOTE | 2020-08-09 11:30 | PM.OBDSVD ---
DS: Admitting Diagnosis Admitting Diagnosis Admitting Diagnosis: IUP at 38 weeks 1 day ,previous CD,Oligohydramnios,GDM diet controlled. DS: Discharge Diagnosis Discharge Diagnosis (1) Previous delivery, delivered: Code(s): O34.219 - Maternal care for unspecified type scar from previous delivery Status: Acute OB - DS: Summary OB Procedures : NST and Ultrasound OB Procedures Intrapartum: low cervical, transverse OB Procedures: : Other (IV iron) Peripartum Data Delivery Method: Section Procedures: Procedures Operation Date: 08/08/20 12:00 Actual Procedures Side Surgeon p Repeat Section Patricia Coy MD complications: none Status at Discharge Functional status at discharge: independent ambulation Overall status at discharge: patient is progressing back to baseline Time Spent with Patient Time attestation: Total time spent providing and/or coordinating discharge services: Exam Const: General: cooperative, healthy appearing, comfortable, no acute distress, well developed, alert, awake and Physically active Nutritional Appearance: obese Orientation/consciousness: patient oriented x3 Limitations: no limitations HENMT: Head: normal to inspection, No palpable skull fracture present and normocephalic Ears: hearing grossly normal bilaterally Eyes: General: appearance normal, both eyes and all related structures Neck: Neck: normal visual inspection Chest: Chest palpation & inspection: normal inspection of the chest Breast/axilla inspection: normal inspection of the breasts Resp: Effort & Inspection: normal respiratory effort and able to speak in complete sentences Auscultation: clear to auscultation bilaterally Cardio: Rate: regular rate Rhythm: regular rhythm GI: Inspection: normal to inspection and incision (C/D/[place] dressing intact) GI Palp: Yes Soft to palpation and Yes Other GI palpation findings present (fundus firm below umbilicus) Auscultation: normal bowel sounds Rectal Exam: deferred DS: Data Data Completed and Pending Pending studies at discharge: Pending at discharge 08/08/20 13:05 Surgical [PTH] Routine Labs on day of discharge: Labs from last 24 hours 08/09/20 08/08/20 08/08/20 04:06 10:46 10:46 WBC 8.6 RBC 3.24 L Hgb 7.6 L Hct 25.0 L MCV 77.2 L MCH 23.5 L MCHC 30.4 L RDW 17.9 H Plt Count 326 MPV 10.2 Immature Gran % (Auto) 0.6 H Neut % (Auto) 63.0 Lymph % (Auto) 29.2 [place] % (Auto) 5.7 Eos % (Auto) 1.3 Baso % (Auto) 0.2 Lymph # (Auto) 2.51 [place] # (Auto) 0.5 Eos # (Auto) 0.1 Baso # (Auto) 0.0 Abs Immat Gran (auto) 0.05 H Absolute Neuts (auto) 5.4 Absolute Nucleated RBC 0.0 Nucleated RBC % 0.0 RPR HIV 1&2 Ab/P24 Ag 4thGn Negative Blood Type A Positive Antibody Screen Negative 08/08/20 10:46 WBC RBC Hgb Hct MCV MCH MCHC RDW Plt Count MPV Immature Gran % (Auto) Neut % (Auto) Lymph % (Auto) [place] % (Auto) Eos % (Auto) Baso % (Auto) Lymph # (Auto) [place] # (Auto) Eos # (Auto) Baso # (Auto) Abs Immat Gran (auto) Absolute Neuts (auto) Absolute Nucleated RBC Nucleated RBC % RPR Non-reactive HIV 1&2 Ab/P24 Ag 4thGn Blood Type Antibody Screen Discharge Plan Discharge Attending physician on discharge: Patricia Coy Discharging Clinician: Patricia Coy Patient Disposition: Home, Self-Care Activity: as tolerated and pelvic rest Diet: regular Patient Instructions: Antibiotic Form Stand Alone Forms: General Discharge Information Follow-up/Referrals: Patricia Coy MD [Physician] - Discharge Medications: New hydrocodone-acetaminophen 5-325 mg Tablet 1 tablet PO Q3H PRN (Reason: Moderate Pain (4-6)) Qty: 30 RF: 0 polysaccharide iron complex 150 mg iron Capsule 150 mg PO BIDWM Qty: 60 RF: 0 docusate sodium
[2020-08-09 12:05] VITALS: BP 140/85; PULSE 89; RESP 20; TEMP 36.1
[2020-08-09] MEDS: IBUPROFEN 600 MG TABLET PO ×2 (12:08→20:30)
[2020-08-09 19:47] VITALS: BP 140/90; PULSE 83; RESP 16; TEMP 36.9; O2SAT 100
[2020-08-09] MEDS: SIMETHICONE 80 MG TAB.CHEW PO (20:30)
[2020-08-09] MEDS: VENLAFAXINE HCL XR 75 MG CAP.ER.24H 150 MG PO (21:54)
[2020-08-10] MEDS: HYDROcodone/acetaminophen (*CRX) 5-325 MG TABLET 1 TAB PO ×3 (03:30→13:55)
[2020-08-10] MEDS: IBUPROFEN 600 MG TABLET PO ×3 (03:30→13:55)
--- NOTE | 2020-08-10 08:00 | PC.NURSE ---
PT introductions made and plan of care discussed per post op c section, pain management, breast feeding, daily care activities and pending discharge to home . PT verbalized understanding of such care.
[2020-08-10] MEDS: SIMETHICONE 80 MG TAB.CHEW PO ×2 (09:38→13:55)
[2020-08-10] MEDS: LANOLIN (LANSINOH) 7.5 GM CREAM 1 APPLIC TOPICAL (09:38)
[2020-08-10] MEDS: DOCUSATE SODIUM 100 MG CAPSULE PO (09:39)
[2020-08-10] MEDS: POLYSACCHARIDE IRON COMPLEX 150 MG CAPSULE PO (09:39)
[2020-08-10] MEDS: MULTIVIT/MIN/PREN/FOL AC/IRON TABLET 1 TAB PO (09:39)
[2020-08-10 09:45] VITALS: BP 130/78; PULSE 80; RESP 18; TEMP 36.6; O2SAT 100
[2020-08-10] MEDS: IRON SUCROSE COMPLEX 200 MG in SODIUM CHLORIDE 0.9% IV 50 ML 240 MG IVPB (10:52)
--- NOTE | 2020-08-10 11:25 | PC.NURSE ---
Patient viewed the discharge video Mother & Baby Care, The First Two Weeks . Patient was given the opportunity and encouraged to ask questions. Patient verbalized understanding of information shared and has been given the mother/baby guide for home reference.
--- NOTE | 2020-08-10 11:28 | PM.OBPNVD ---
OB - PN: Subj Subjective Date/time seen: 08/10/20 11:28 Patient comments: pain well controlled, tolerating diet and flatus present baby status: doing well and nursing well [place] feeding status: exclusively breast feeding Narrative: Pain well controlled Tolerating regular diet Ambulating and urinating without difficulty Lochia less than her menses Baby girl doing well and BF OB - PN: Obj Data Labs CBC & Chem 7: 08/09/20 04:06 OB - PN A/P Assessment and Plan (1) Depression: Code(s): F32.9 - Major depressive disorder, single episode, unspecified Status: Acute Assessment and Plan: mood stable. continue effexor (2) Anemia: Code(s): D64.9 - Anemia, unspecified Status: Acute Assessment and Plan: s/p 2 dose of IV iron and will send home on iron (3) Previous delivery, delivered: Code(s): O34.219 - Maternal care for unspecified type scar from previous delivery Status: Acute Assessment and Plan: doing well. will d/c home f/u in 1 week for incision checkup post op instruction provided BF instructed Instruction provided for care for STEFF dressing Time Spent With Patient Time: Total time spent is greater than 50% in coordination of care (as documented) at patient's floor/unit and/or counseling patient: Review of Systems Constitutional: Constitutional: Reports as per HPI, Denies chills, Denies fever(s) and Denies headache(s) Eyes: Eyes: Reports as per HPI and Denies blurry vision ENT: Reports Normal hearing present Cardiovascular: Cardiovascular: Denies chest pain, Denies lightheadedness and Denies dyspnea Respiratory: Respiratory: Denies cough and Denies dyspnea Gastrointestinal: Gastrointestinal: Reports as per HPI Genitourinary: Genitourinary: Reports as per HPI Exam Const: General: cooperative, healthy appearing, comfortable, no acute distress, well developed, alert, awake and Physically active Nutritional Appearance: obese Orientation/consciousness: patient oriented x3 Limitations: no limitations HENMT: Head: normal to inspection, No palpable skull fracture present, normocephalic and atraumatic Eyes: General: appearance normal, both eyes and all related structures Neck: Neck: normal visual inspection Resp: Effort & Inspection: normal respiratory effort and able to speak in complete sentences Auscultation: clear to auscultation bilaterally Cardio: Rate: regular rate Rhythm: regular rhythm GI: Inspection: normal to inspection, non-distended, incision (C/D/Steff dressing intact) and obesity GI Palp: No abdominal tenderness and Yes Soft to palpation Auscultation: normal bowel sounds Rectal Exam: deferred
--- NOTE | 2020-08-10 13:40 | PC.NURSE ---
PT received discharge instructions per protocol and verbalized understanding of such care.
== END 2020-08-10 14:16 | disposition home or self-care (01) | DRG 787 ==
LOC: ANHLDR 10:29 → ANHOB2 16:29
PROVIDERS: Admitting Provider Obstetrics & Gynecology; Visit Provider Obstetrics & Gynecology
PROC: 10D00Z1 Extraction of Products of Conception, Low, Open Approach (ICD-10-PCS; CPT 59514; principal; 2020-08-08 12:00)
DX: O34.211 Maternal care for low transverse scar from previous cesarean delivery (principal); O41.03X0 Oligohydramnios, third trimester, not applicable or unspecified; O24.420 Gestational diabetes mellitus in childbirth, diet controlled; O13.4 Gestational [pregnancy-induced] hypertension without significant proteinuria, complicating childbirth; Z3A.38 38 weeks gestation of pregnancy; Z37.0 Single live birth; O99.214 Obesity complicating childbirth; E66.01 Morbid (severe) obesity due to excess calories; O99.344 Other mental disorders complicating childbirth; O99.02 Anemia complicating childbirth; D64.9 Anemia, unspecified; F32.9 Major depressive disorder, single episode, unspecified; Z87.891 Personal history of nicotine dependence
CPT/HCPCS: 36415; 84112; 85025; 86592; 86703; 86850; 86900; 86901; 88307; 96374; 96375; A9270; C1765; G0432; J0131; J0690; J1200; J1756; J1885; J2274; J2370; J2405; J2590; J3480; J7120